=== PATIENT | male | born 2000 ===

== ENCOUNTER 2020-02-28 21:51 | Emergency (ER) | payer BC ==
[2020-02-28 22:07] VITALS: BP 110/74; PULSE 81
--- NOTE | 2020-02-28 22:16 | EDM.PDOC ---
ED HPI GENERAL MEDICAL PROBLEM - General Chief Complaint: ENT Problem Stated Complaint: TOOTH ACHE Time Seen by Provider: 02/28/20 21:58 - History of Present Illness INITIAL COMMENTS - FREE TEXT/NARRATIVE: History of present illness: Patient presents with right upper dental pain on the second molar he is not sure what happened to it but it began hurting on Friday which was 3 days ago he has an appointment on Friday to see a dentist he is taken Motrin and still hurting he denies any other problems no complaints no difficulty swallowing no fever no chills nothing seems to make it better or worse Review of systems: As per history of present illness and below otherwise all systems reviewed and negative. Past medical history: As per history of present illness and as reviewed below otherwise noncontributory. Surgical history: As per history of present illness and as reviewed below otherwise noncontributory. Social history: No reported history of drug or alcohol abuse. Family history: As per history of present illness and as reviewed below otherwise noncontributory. Physical exam: HEENT: Atraumatic, normocephalic, pupils reactive, negative for conjunctival pallor or scleral icterus, mucous membranes moist, throat clear, neck supple, nontender, trachea midline. Upper right second molar appears to be fractured and carious. No trismus Lungs: Clear to auscultation, breath sounds equal bilaterally, chest nontender. Heart: S1S2, regular, negative for clicks, rubs, or JVD. Abdomen: Soft, nondistended, nontender. Negative for masses or hepatosplenomegaly. Negative for costovertebral tenderness. Pelvis: Stable nontender. Genitourinary: Deferred. Rectal: Deferred. Extremities: Atraumatic, negative for cords or calf pain. Neurovascular unremarkable. Neuro: Awake, alert, oriented. Cranial nerves II through XII unremarkable. Cerebellum unremarkable. Motor and sensory unremarkable throughout. Exam nonfocal. Diagnostics: [] Therapeutics: [] I [] Plan: Clindamycin naproxen follow-up with a dentist [] Definitive disposition and diagnosis as appropriate pending reevaluation and review of above. - Related Data Allergies Allergy/AdvReac Type Severity Reaction Status Date / Time Augmentin Allergy Hives Uncoded 02/28/20 22:13 Ceclor Allergy Hives Uncoded 02/28/20 22:14 Home Meds: Home Meds Clindamycin HCl 300 mg PO QID #40 capsule 02/28/20 [Rx] Naproxen [Naprosyn] 500 mg PO Q12HR #20 tab 02/28/20 [Rx] Past Medical History - Past Health History Medical/Surgical History: Denies Medical/Surgical History ED ROS GENERAL - Review of Systems Review Of Systems: See Below ED EXAM, GENERAL - Physical Exam Exam: See Below Course - Vital Signs Last Recorded V/S: Last Vital Signs Temp 36.3 C 02/28/20 22:04 Pulse 81 02/28/20 22:04 Resp 16 02/28/20 22:04 BP 110/74 02/28/20 22:04 Pulse Ox 96 02/28/20 22:04 - Orders/Labs/Meds Meds: Medications Discontinued Medications Generic Name Dose Route Start Last Admin Trade Name Freq PRN Reason Stop Dose Admin Acetaminophen 1,000 mg 02/28/20 22:20 Tylenol Extra Strength PO 02/28/20 22:21 ONETIME ONE Clindamycin HCl 300 mg 02/28/20 22:19 Cleocin PO 02/28/20 22:20 ONETIME ONE Departure - Departure Time of Disposition: 22:23 Disposition: Home, Self-Care 01 Condition: Good Clinical Impression: Toothache - Discharge Information *PRESCRIPTION DRUG MONITORING PROGRAM REVIEWED*: Not Applicable *COPY OF PRESCRIPTION DRUG MONITORING REPORT IN PATIENT BRIGIDO: Not Applicable Prescriptions: Clindamycin HCl 300 mg PO QID #40 capsule Naproxen [Naprosyn] 500 mg PO Q12HR #20 tab Instructions: Acute Pain, Adult Forms: ED Department Discharge Additional Instructions: The following information is given to patients seen in the emergency department who are being discharged to home. This information is to outline your options for follow-up care. We provide all patients seen in our emergency department with a follow-up referral. The need for follow-up, as well as the timing and circumstances, are variable depending upon the specifics of your emergency department visit. If you don't have a primary care physician on staff, we will provide you with a referral. We always advise you to contact your personal physician following an emergency department visit to inform them of the circumstance of the visit and for follow-up with them and/or the need for any referrals to a consulting specialist. The emergency department will also refer you to a specialist when appropriate. This referral assures that you have the opportunity for follow-up care with a specialist. All of these measure are taken in an effort to provide you with optimal care, which includes your follow-up. Under all circumstances we always encourage you to contact your private physician who remains a resource for coordinating your care. When calling for follow-up care, please make the office aware that this follow-up is from your recent emergency room visit. If for any reason you are refused follow-up, please contact the [facility] Emergency Department at and asked to speak to the emergency department charge nurse. [facility] [address] [place] [id number] [id number] See a dentist Sepsis Event Note (ED) - Evaluation Sepsis Screening Result: No Definite Risk - Focused Exam Vital Signs: Vital Signs Temp Pulse Resp BP Pulse Ox 02/28/20 22:04 36.3 C 81 16 110/74 96
[2020-02-28] MEDS ORDERED: Clindamycin HCl 150 MG Cap PO ONE (22:19)
[2020-02-28] MEDS ORDERED: Acetaminophen 500 MG Tab PO ONE (22:20)
== END 2020-02-28 22:40 | disposition home or self-care (01) ==
LOC: MW.ED 21:51
DX: K02.9 Dental caries, unspecified (principal); K03.81 Cracked tooth; Z88.1 Allergy status to other antibiotic agents
CPT/HCPCS: 99282; A9270

== ENCOUNTER 2020-09-28 22:35 | Emergency (ER) | payer BC ==
[2020-09-28] MEDS ORDERED: Cephalexin 500 MG Cap PO ONE (23:21)
[2020-09-28] MEDS ORDERED: traMADol 50 MG Tab PO ONE (23:23)
[2020-09-28] MEDS ORDERED: Acetaminophen 325 MG Tab PO ONE (23:23)
--- NOTE | 2020-09-28 23:28 | EDM.PDOC ---
ED HPI GENERAL MEDICAL PROBLEM - General Chief Complaint: ENT Problem Stated Complaint: TOOTH PAIN Time Seen by Provider: 09/28/20 23:10 - History of Present Illness INITIAL COMMENTS - FREE TEXT/NARRATIVE: HISTORY AND PHYSICAL: History of present illness: This is a 20-year-old gentleman who presents ER today complaining of pain to his left lower molars x2 to 3 days. Patient has been taking ibuprofen at home for pain and discomfort. Patient does have an appointment tomorrow to see a dentist however he reports he will not be able to make it because work will not allow him to have that time off. Patient denies any recent fevers, shakes, chills, nausea, vomiting, diarrhea, dysuria, frequency, urgency. Patient reports he is able to tolerate p.o. solids and liquids well. Patient reports no difficulty with opening of his mouth. No allergy to PCN or Amoxicillin. Only allergic to augmentin as an infant. Allergy to ceclor was diarrhea and vomiting and feeling sick. does not appear c/w allergic reaction. Keflex should be safe. Usually prescribed amoxicillin in past and mother thinks he has had cephalexin in past as well Review of systems: As per history of present illness and below otherwise all systems reviewed and negative. Past medical history: As per history of present illness and as reviewed below otherwise noncontributory. Surgical history: As per history of present illness and as reviewed below otherwise noncontributory. Social history: No reported history of drug or alcohol abuse. Family history: As per history of present illness and as reviewed below otherwise noncontributory. Physical exam: Constitutional: Patient is oriented to person, place, and time. Appears well- developed and well-nourished. No distress. HEENT: Moist mucous membranes Head: Normocephalic and atraumatic Eyes: Right eye exhibits no discharge. Left eye exhibits no discharge. No scleral icterus Neck: Normal range of motion. No tracheal deviation present. Cardiovascular: Normal rate and regular rhythm. Pulmonary: Effort normal, no respiratory distress. Abdominal: No distention Musculoskeletal: Normal range of motion Neurologic: Alert and oriented to person, place and time. Skin: [place], warm and dry. Psychiatric: Normal mood and affect. Behavior is normal. Judgment and thought content normal. Nursing note and vital signs have been reviewed This patient was seen and evaluated during the 2019 SARS-CoV-2 novel coronavirus pandemic period. Community viral transmission is ongoing at time of this encounter and the emergency department is operating under pandemic response procedures. Patient's ER physical exam is significant for soft tissue swelling around his left lower premolar gum line. There is no fluctuance. There is no trismus. Patient does have some swelling noted on the angle of his mandible on the left side. Assessment and plan: This is a 18-year-old gentleman who presents ER today secondary to pain to his left lower molars. Patient reports swelling and discomfort to his tooth. Patient does have a dentist but will not be able to make his appointment tomorrow secondary to work issues. Patient has been taking ibuprofen for pain. Patient be given a dose of Keflex in the ER today (No allergy to PCN or Amoxicillin. Only allergic to Augmentin as an infant. Allergy to Ceclor was diarrhea and vomiting and feeling sick. does not appear c/w allergic reaction. Keflex should be safe. Usually prescribed amoxicillin in past and mother thinks he has had cephalexin in past as well). Patient be given a dose of Ultram here in the ED as well as Tylenol and Keflex. Reassessment at the time of disposition demonstrates that the patient is in no acute distress. The patient has remained stable throughout the entire ED visit and is without objective evidence for acute process requiring urgent intervention or hospitalization. The patient is stable for discharge, counseling is provided as documented above, discussed symptomatic treatment and specific conditions for return. I have spoken with the patient/caregiver and discussed todays findings, in addition to providing specific details for the plan of care. Questions are answered and there is agreement with the plan. Definitive disposition and diagnosis as appropriate pending reevaluation and review of above. left sided dental pain Pain Score (Numeric/FACES): 10 - Related Data Allergies Allergy/AdvReac Type Severity Reaction Status Date / Time Augmentin Allergy Hives Uncoded 09/28/20 22:46 Ceclor Allergy Hives Uncoded 09/28/20 22:46 Home Meds: Home Meds Ibuprofen 600 mg PO Q6HR PRN #30 tablet 09/28/20 [Rx] cephALEXin [Keflex] 500 mg PO Q8H #30 cap 09/28/20 [Rx] Past Medical History - Past Health History Medical/Surgical History: Denies Medical/Surgical History - Infectious Disease History Infectious Disease History: Reports: None - Past Surgical History HEENT Surgical History: Reports: Oral Surgery Social & Family History - Caffeine Use Caffeine Use: Reports: Energy Drinks, Soda, Tea - Recreational Drug Use Recreational Drug Use: No ED ROS GENERAL - Review of Systems Review Of Systems: See Below ED EXAM, GENERAL - Physical Exam Exam: See Below Course - Vital Signs Last Recorded V/S: Last Vital Signs Temp 96.7 F L 09/28/20 22:47 Pulse 66 09/28/20 22:47 Resp 17 09/28/20 22:47 BP 115/68 09/28/20 22:47 Pulse Ox 98 09/28/20 22:47 - Orders/Labs/Meds Orders: Active Orders 24 hr Category Date Time Status Acetaminophen [TylenoL] Med 09/28/20 23:23 Once 650 mg PO NOW ONE cephALEXin [Keflex] Med 09/28/20 23:21 Once 500 mg PO ONETIME ONE traMADol [Ultram] Med 09/28/20 23:23 Once 50 mg PO ONETIME ONE Departure - Departure Time of Disposition: 23:26 Disposition: Home, Self-Care 01 Condition: Good Clinical Impression: Dental abscess, Dental caries extending into dentin - Discharge Information Instructions: Dental Abscess, [id number] Referrals: PCP,None [Primary Care Provider] - Additional Instructions: Seen and evaluated in ER today secondary to pain to her left lower molars. It appears that you do have a cavity and infection in that area. He will be started on Keflex 500 mg 3 times a day for 10 days. He will be given a dose of Ultram here in the ED and a prescription for extract ibuprofen to take. Please make an appointment to see your dentist as soon as you can. The following information is given to patients seen in the emergency department who are being discharged to home. This information is to outline your options for follow-up care. We provide all patients seen in our emergency department with a follow-up referral. The need for follow-up, as well as the timing and circumstances, are variable depending upon the specifics of your emergency department visit. If you don't have a primary care physician on staff, we will provide you with a referral. We always advise you to contact your personal physician following an emergency department visit to inform them of the circumstance of the visit and for follow-up with them and/or the need for any referrals to a consulting specialist. The emergency department will also refer you to a specialist when appropriate. This referral assures that you have the opportunity for follow-up care with a specialist. All of these measure are taken in an effort to provide you with optimal care, which includes your follow-up. Under all circumstances we always encourage you to contact your private physician who remains a resource for coordinating your care. When calling for follow-up care, please make the office aware that this follow-up is from your recent emergency room visit. If for any reason you are refused follow-up, please contact the [facility] Emergency Department at and asked to speak to the emergency department charge nurse. [facility] [address] [place] [id number] [facility] [address] [place] [id number] Sepsis Event Note (ED) - Evaluation Sepsis Screening Result: No Definite Risk - Focused Exam Vital Signs: Vital Signs Temp Pulse Resp BP Pulse Ox 09/28/20 22:47 96.7 F L 66 17 115/68 98 - My Orders Last 24 Hours: My Active Orders 09/28/20 23:21 cephALEXin [Keflex] 500 mg PO ONETIME ONE 09/28/20 23:23 Acetaminophen [TylenoL] 650 mg PO NOW ONE traMADol [Ultram] 50 mg PO ONETIME ONE - Assessment/Plan Last 24 Hours: My Active Orders 09/28/20 23:21 cephALEXin [Keflex] 500 mg PO ONETIME ONE 09/28/20 23:23 Acetaminophen [TylenoL] 650 mg PO NOW ONE traMADol [Ultram] 50 mg PO ONETIME ONE
[2020-09-29 01:30] VITALS: BP 114/72; PULSE 77
== END 2020-09-28 23:43 | disposition home or self-care (01) ==
LOC: MW.ED 22:35
DX: K04.7 Periapical abscess without sinus (principal); K02.9 Dental caries, unspecified; Z88.1 Allergy status to other antibiotic agents
CPT/HCPCS: 99282; A9270; 99283

== ENCOUNTER 2023-08-30 11:56 | Emergency (ER) | payer SELFPAY ==
[2023-08-30 15:04] VITALS: BP 125/82; PULSE 85
== END 2023-08-30 15:03 | disposition home or self-care (01) ==
LOC: MW.ED 11:56
DX: S02.2XXA Fracture of nasal bones, initial encounter for closed fracture (principal); S00.83XA Contusion of other part of head, initial encounter; Z88.1 Allergy status to other antibiotic agents; Y04.8XXA Assault by other bodily force, initial encounter
CPT/HCPCS: 70486; 70486-26; 99283